=== PATIENT | male | born 1990 | race Asian ===

== ENCOUNTER → 2017-01-13 | Day surgery (SDC) | payer BC ==
[~2017-01-13] MED LIST: NO MEDICATIONS
--- NOTE | ~2017-01-13 | OR ---
Unit #: [id number] #: [id number] Patient: EDGAR BINGHAM [id number] [address] [place], [place] [address] [id number] MR#: [id number] NAME: EDGAR BINGHAM ROOM: Date of Procedure: 01/13/2017 Admission Date: 01/13/2017 Surgeon: Randell Villatoro M.D. : 1990 Attending Physician: Randell Villatoro M.D. Referring Physician: Randell Villatoro M.D. Primary Care Physician: Ester Horner M.D. OPERATIVE REPORT PREOPERATIVE DIAGNOSES 1. Heme-positive stool. 2. Possible rectal mass. POSTOPERATIVE DIAGNOSES 1. Heme-positive stool. 2. Possible rectal mass. PROCEDURE PERFORMED Colonoscopy to cecum. ANESTHESIA Monitored anesthesia care. FINDINGS The patient was found to have a mild to moderate internal hemorrhoid. SPECIMENS None. COMPLICATIONS None apparent. CONDITION The patient tolerated the procedure well. INDICATIONS FOR PROCEDURE The patient is a 26-year-old [place] male. He states that with defecation, he intermittently will feel something prolapses out of his rectum, which he sometimes has to manually replace per his history. On digital examination in the office, he had good sphincter tone. No masses palpable. There was trace Hemoccult positive. He presents at this time for evaluation by colonoscopy. DESCRIPTION OF PROCEDURE After obtaining informed consent, the patient was brought to the endoscopy suite and after adequate monitored anesthesia care, had the colonoscope placed through the anus and slowly advanced to the level of the cecum without difficulty with the lumen always in view. The cecum was normal as was the ileocecal valve. The ascending colon was normal as was the hepatic flexure, transverse colon, splenic flexure, descending colon, Unit #: [id number] #: [id number] Patient: EDGAR BINGHAM sigmoid colon and upper rectum. The lower rectum appeared normal on viewing through the anal canal. No abnormality was seen. On retroflexing in the rectum to the anorectal junction, there was a [id number] internal hemorrhoid. It was not very large. On pulling back through the anal canal, there was no obvious abnormality seen. On digital examination, there was good sphincter tone. No masses palpable. The patient went from the endoscopy suite to recovery area in stable condition. RECOMMENDATIONS High-fiber diet, lots of liquids, tucks or wipes p.r.n. Follow up in our office as needed or call for questions. Dictated by... Slime Shields/krista TD: 01/13/2017 22:39 JOB #: [id number] CC: [facility] OPERATIVE REPORT Page 1 of 1 X Randell Villatoro MD X PROCEDURE OPERATIVE NOTE
== END | disposition home or self-care (01) ==
LOC: COPS 05:43
DX: K64.8 Other hemorrhoids (principal); R19.5 Other fecal abnormalities
CPT/HCPCS: J2250